=== PATIENT | female | born 1985 | race Caucasian/White ===

== ENCOUNTER 2021-03-06 12:55 | Emergency (ER) | payer OTHER ==
[~2021-03-06] VITALS: Ht 162.6 cm; Wt 64.4 kg
--- NOTE | ~2021-03-06 | EMS ---
[place] [address] EMS Patient Care Report Name: JUSTIN PINEDA Room #: DEP DANG Walker#: [id number] Admission: 03/06/21 Attend Phys: Discharge: 03/06/21 Date of : 83 Report #: [id number] THIS REPORT FOR: //name// Report Transmitted: 03/10/2021 09:56 EMS Care Summary [place], [place]/[facility] Incident [id number] @ 03/06/2021 12:22 Incident Location [address] [place] [address] Patient JUSTIN PINEDA Female, 35 Years 1985 Patient Address [address] [place] [address] Patient History Pancreatitis,Alcohol Abuse, Patient Allergies No known allergies, Patient Medications Potassium, None Reported, Chief Complaint ABD PAIN Disposition Transported No Lights/[place] Dispatch Reason Chest Pain (Non-Traumatic) Transported To [facility] Narrative PT FOUND SITTING UP A/O X3 C/O ABD PAIN AND SOA. PT CBBS AND BREATHING RATE WAS 36 A MIN. PTREFUSED TO SLOW HER BREATHING DOWN AND WAS VERY ACTIVE [place] [address] EMS Patient Care Report Name: JUSTIN PINEDA Room #: DEP DANG Walker#: [id number] Admission: 03/06/21 Attend Phys: Discharge: 03/06/21 Date of : 83 Report #: [id number] Initial Vitals @12:32P: 109,R: 36,BP: 138/93,Pain: 10/10,GCS: 15,Glucose: 126,SpO2: 98,Revised Trauma: 11, @12:32P: 112,R: 36,BP: 142/96,Pain: 10/10,GCS: 15,Revised Trauma: 11, Assessments @12:28MENTAL:No Abnormalities,SKIN:No Abnormalities,HEENT:Head/Face: No Abnormalities,Eyes: No Abnormalities,Neck/Airway: No Abnormalities,LUNG SOUNDS:Right Upper: Other,Left Upper: Other,General: Nausea,Left Lower: No Abnormalities,Right Lower: No Abnormalities,ABDOMEN:Right Upper: Other,Left Upper: Other,General: Nausea,Left Lower: No Abnormalities,Right Lower: No Abnormalities,PELVIS//GI:No Abnormalities,EXTREMITIES:Left Arm: No Abnormalities,Right Arm: No Abnormalities,Left Leg: No Abnormalities,Right Leg: No Abnormalities,PULSE:NEURO:No Abnormalities, Impression Abdominal Pain Procedures @12:28ALS AssessmentResponse: UnchangedSucceeded Timeline 12:20,Call Received 12:20,Dispatch Notified 12:22,Dispatched 12:23,En Route 12:27,On Scene 12:28,At Patient 12:28,ALS Assessment,Response: UnchangedSucceeded, 12:32,BP: 138/93 M,PULSE: 109,RR: 36 R,SPO2: 98 Ox,ETCO2: ,B,PAIN: 10,GCS: 15, 12:32,BP: 142/96 M,PULSE: 112,RR: 36 R,SPO2: Ox,ETCO2: ,BG: ,PAIN: 10,GCS: 15, 12:38,Depart Scene 12:51,At Destination 13:01,Call Closed Disclaimer v1.1 Copyright 2020 [employer] This EMS Care Summary contains data elements from the applicable legal record (which may be displayed differently). It is designed to provide pertinent information for the following purposes: continuity of care, clinical quality, and state data reporting. The complete legal record is available to ED staff and administrators of the receiving hospital in [employer] Patient Tracker. All data is provided "as is."
[2021-03-06 13:14] LABS: URINE BILIRUBIN 1+ (Negative); URINE BLOOD 2+ (Negative); URINE CLARITY SL CLOUDY; URINE COLOR YELLOW; URINE GLUCOSE-RANDOM* NEGATIVE (Negative); URINE KETONES NEGATIVE (Negative); URINE PROTEIN (DIPSTICK) TRACE (Negative)
[2021-03-06 13:20] LABS: ICTOTEST (BILI CONFIRMATORY) Negative (Negative); URINE LEUKOCYTES-REFLEX 2+ (Negative); URINE NITRITE-REFLEX POSITIVE (Negative)
[2021-03-06 13:24] LABS: CASTS None Seen /LPF (None Seen); SQUAMOUS 0-3 Few /LPF (0-3)
[2021-03-06 13:25] LABS: BACTERIA-REFLEX >30 Many /HPF (None Seen); CRYSTALS None Seen /LPF (None Seen); MUCUS 0-3 Light strn/LPF (None Seen); URINE RBC 3-10 Few /HPF (NONE SEEN)
[2021-03-06 13:42] LABS: HEMATOCRIT 34.5 % (37.0-47.0); HEMOGLOBIN 11.8 gm/dL (12.0-15.0); MCH 36.5 pg (26.0-34.0); MCHC 34.3 g/dL (28.0-37.0); MCV 106.4 fL (80.0-100.0); PLATELET COUNT 229 thou/uL (150-400); RBC 3.25 mil/uL (4.20-5.00); RDW 17.4 % (10.5-14.5); WBC 4.3 thou/uL (4.0-11.0)
[2021-03-06 13:49] LABS: CALCIUM 7.9 mg/dL (8.5-10.1); CREATININE 0.5 mg/dL (0.6-1.0); POTASSIUM 3.2 mmol/L (3.5-5.1)
[2021-03-06 13:55] LABS: ALBUMIN 2.6 g/dL (3.4-5.0); DIRECT BILIRUBIN 0.3 mg/dL (<0.1-0.2); TOTAL BILIRUBIN 0.6 mg/dL (0.2-1.0); TOTAL PROTEIN 5.9 g/dL (6.4-8.2)
[2021-03-06 14:26] LABS: ABSOLUTE NEUTROPHILS 1.3 thou/uL (1.4-8.2); ATYPICAL LYMPHS 3 %
[2021-03-06] MEDS ORDERED: CARAFATE 1 GM TA1 G1 PO (15:58)
[2021-03-06] MEDS ORDERED: ONDANSETRON HCL4 M2 PO (15:58)
[2021-03-06] MEDS ORDERED: FLAGYL500 M1 PO (15:58)
[2021-03-06] MEDS ORDERED: CIPRO500 M1 PO (15:58)
[2021-03-06 16:01] VITALS: BP 109/78
--- NOTE | 2021-03-09 07:34 | EKG ---
[address] [address] ELECTROCARDIOGRAM REPORT Name: JUSTIN PINEDA Room #: [facility] [id number] Admission: 03/06/21 Attend Phys: Discharge: 03/06/21 Date of : 83 Report #: [id number] [facility] ED Test Date: 2021-03-06 Test Time: 13:17:45 Pat Name: JUSTIN PINEDA Department: Room: Gender: F Regional Ehs Manager: ELIZABETH SAENZ : 1985 Requested By: Thomas Salvador Order Number: [id number] MD: Ruel Vines Measurements Intervals [place] Rate: 91 P: 45 DE: 139 QRS: 50 QRSD: 102 T: 70 QT: 372 QTc: 458 Interpretive Statements Sinus rhythm No previous ECG available for comparison Electronically Signed On 03-09-2021 7:34:09 CDT by Ruel Vines [email or web address] <ELECTRONICALLY SIGNED> By: Ruel Vines MD, [facility] 03/09/21 0734 1317 1317 Ruel Vines MD, FACC /EPI
--- NOTE | 2021-03-09 07:34 | EKG ---
[place] [address] [address] [place] [address] ELECTROCARDIOGRAM REPORT Name: JUSTIN PINEDA Room #: [facility] [id number] Admission: 03/06/21 Attend Phys: Discharge: 03/06/21 Date of : 83 Report #: [id number] [facility] ED Test Date: 2021-03-06 Test Time: 13:19:57 Pat Name: JUSTIN PINEDA Department: Room: Gender: F Assistant Maintenance Manager: ELIZABETH SAENZ : 1985 Requested By: Thomas Salvador Order Number: [id number] MD: Ruel Vines Measurements Intervals [place] Rate: 87 P: 11 GA: 151 QRS: 48 QRSD: 108 T: 70 QT: 385 QTc: 463 Interpretive Statements Sinus rhythm Borderline repolarization abnormality Compared to ECG 03/06/2021 13:17:45 No significant changes Electronically Signed On 03-09-2021 7:34:11 CDT by Ruel Vines [email or web address] <ELECTRONICALLY SIGNED> By: Ruel Vines MD, [facility] 03/09/21 0734 1319 1319 Ruel Vines MD, FACC /EPI
[2021-03-10] MEDS ORDERED: CEPHALEXIN500 MG PO (07:35)
== END 2021-03-06 16:11 | disposition home or self-care (01) ==
LOC: ER 12:55
PROVIDERS: Nurse Practitioner
DX: R10.13 Epigastric pain (principal); F10.20 Alcohol dependence, uncomplicated; Z98.890 Other specified postprocedural states